=== PATIENT | female | born 1975 | race Hispanic/Latino ===

== ENCOUNTER 2021-12-28 10:28 | Emergency (ER) | payer OTHER ==
[~2021-12-28] VITALS: Ht 152.4 cm; Wt 73.5 kg
[2021-12-28 10:58] LABS: BASOPHILS % (AUTO) 0.6 % (0.0-5.0); EOSINOPHILS % (AUTO) 3.6 % (0.0-8.0); HEMATOCRIT 40.4 % (36-48); MEAN CORPUSCULAR HEMOGLOBIN 30.7 pg (27.0-33.0); MEAN CORPUSCULAR HGB CONC 34.2 g/dL (32.0-36.0); MONOCYTES % (AUTO) 9.2 % (3.0-13.0); NEUTROPHILS % (AUTO) 52.3 % (40.0-77.0); PLATELET COUNT (AUTO) 246 K/uL (130-400); RED BLOOD CELL COUNT(AUTO) 4.49 MIL/uL (4.00-5.50); RED CELL DISTRIBUTION WIDTH 11.9 % (11.0-15.5); WHITE BLOOD COUNT (AUTO) 6.7 K/uL (4.8-10.8)
[2021-12-28 11:00] LABS: APPEARANCE,URINE CLOUDY (CLEAR); BILIRUBIN,URINE NEGATIVE (NEGATIVE); COLOR,URINE YELLOW (YELLOW); GLUCOSE, URINE (UA) NEGATIVE (NEGATIVE); KETONES,URINE NEGATIVE (NEGATIVE); LEUKOCYTE ESTERASE ,URINE NEGATIVE Leu/uL (NEGATIVE); NITRATE,URINE NEGATIVE (NEGATIVE); OCCULT BLOOD,URINE NEGATIVE (NEGATIVE); PH,URINE 6.5 (5.0-8.0); PROTEIN,URINE NEGATIVE (NEGATIVE); UROBILINOGEN,URINE 0.2 mg/dL (0.2-1.0)
[2021-12-28 11:27] LABS: CREATININE 0.8 mg/dL (0.5-1.5)
[2021-12-28 11:32] LABS: ALBUMIN 3.8 g/dL (3.5-5.0); TOTAL PROTEIN, SERUM 7.7 g/dL (6.0-8.3)
[2021-12-28 12:29] VITALS: BP 101/52
[2021-12-28] MEDS ORDERED: LACTULOSE 20 GM/30 ML UDCUP PO ONE (13:00)
[2021-12-28] MEDS ORDERED: GLYCERIN ADULT SUPP.RECT RC SCH (13:00)
[2021-12-28] MEDS ORDERED: LACT10SO9 PO (14:53)
== END 2021-12-28 14:58 | disposition home or self-care (01) ==
LOC: EDH 10:28
DX: K59.01 Slow transit constipation (principal); R10.2 Pelvic and perineal pain; R10.31 Right lower quadrant pain; R10.32 Left lower quadrant pain; F41.9 Anxiety disorder, unspecified; E78.00 Pure hypercholesterolemia, unspecified; E03.9 Hypothyroidism, unspecified; F43.10 Post-traumatic stress disorder, unspecified; Z98.890 Other specified postprocedural states; Z88.6 Allergy status to analgesic agent
CPT/HCPCS: 36415; 74176; 80053; 81003; 84484; 84703; 85025

== ENCOUNTER → 2023-07-06 | Outpatient (CLI) | payer BC, OTHER ==
[~2023-07-06] MED LIST: LACT10SO9 PO
== END | disposition home or self-care (01) ==
LOC: RAH 13:25
PROVIDERS: ATTEND Obstetrics & Gynecology
DX: N83.292 Other ovarian cyst, left side (principal); N85.8 Other specified noninflammatory disorders of uterus
CPT/HCPCS: 76830